=== PATIENT | female | born 1980 | race African-American/Black ===

== ENCOUNTER 2017-03-02 06:11 | Day surgery (SDC) | payer OTHER ==
[2017-02-28 12:21] LABS: BASOPHILS # (AUTO) 0.2 K/uL (0.00-0.22); BASOPHILS % (AUTO) 2.9 % (0.0-2.0); EOSINOPHILS # (AUTO) 0.2 K/uL (0-0.4); EOSINOPHILS % (AUTO) 2.2 % (0.0-4.0); HEMOGLOBIN 11.5 g/dL (12.0-16.0); LYMPHOCYTES # (AUTO) 3.3 K/uL (2.5-16.5); LYMPHOCYTES % (AUTO) 39.5 % (20.5-51.1); MEAN CORPUSCULAR HEMOGLOBIN 24 pg (27-31); MEAN CORPUSCULAR HGB CONC 32 g/dL (33-37); MEAN CORPUSCULAR VOLUME 74 fL (80-94); MONOCYTES # (AUTO) 0.4 K/uL (0.8-1.0); MONOCYTES % (AUTO) 4.8 % (1.7-9.3); NEUTROPHILS # (AUTO) 4.3 K/uL (1.8-7.7); NEUTROPHILS % (AUTO) 50.6 % (42.2-75.2); PLATELET COUNT (AUTO) 350 K/uL (140-450); RED BLOOD CELL COUNT(AUTO) 4.87 MIL/uL (4.20-5.40); RED CELL DISTRIBUTION WIDTH 19.8 % (11.6-13.7); WHITE BLOOD COUNT (AUTO) 8.4 K/uL (4.8-10.8)
[2017-02-28 12:47] LABS: ALBUMIN 3.9 g/dL (3.4-5.0); CARBON DIOXIDE 29.6 mmol/L (21-32); POTASSIUM 3.6 mmol/L (3.5-5.1); TOTAL BILIRUBIN 0.2 mg/dL (0.0-1.0)
[~2017-03-02] VITALS: Ht 142.2 cm; Wt 80.7 kg
[2017-03-02] MEDS ORDERED: SIMV5TAB1 PO (07:06)
[2017-03-02] MEDS ORDERED: CARV12.5 PO (07:06)
[2017-03-02] MEDS ORDERED: AMLO5TAB PO (07:06)
[2017-03-02] MEDS ORDERED: IBUPROFEN 800 MG TAB PO PRN (08:35)
[2017-03-02] MEDS ORDERED: ONDANSETRON 4 MG/2 ML VIAL IVP PRN ×2 (08:35→09:50)
[2017-03-02] MEDS ORDERED: ACETAMINOPHEN/CODEINE 300/30MG 1 TAB PO PRN (08:35)
[2017-03-02] MEDS ORDERED: MORPHINE SULFATE 4 MG/ML SYR IM/IVP PRN (08:35)
[2017-03-02] MEDS ORDERED: SEVOFLURANE 250 ML BTL INH ONE (09:10)
[2017-03-02] MEDS ORDERED: PROPOFOL 200 MG/20 ML VIAL IV ONE (09:10)
[2017-03-02] MEDS ORDERED: LABETALOL 100 MG/20 ML VIAL ONE (09:10)
[2017-03-02] MEDS ORDERED: LIDOCAINE 2% 100 MG/5 ML SYR IVP ONE (09:10)
[2017-03-02] MEDS ORDERED: MIDAZOLAM 2 MG/2 ML VIAL ONE (09:22)
[2017-03-02] MEDS: HYDROmorphone 1 MG/ML AMP IVP PRN ×2 (10:25→10:33)
[2017-03-02] MEDS ORDERED: HYDROmorphone PFS 2 MG/ML SYR ONE (10:36)
== END 2017-03-02 11:27 | disposition home or self-care (01) ==
LOC: MDS 06:11 → MMU 06:12 → MDS 11:27
PROVIDERS: ATTEND Obstetrics & Gynecology
DX: N92.1 Excessive and frequent menstruation with irregular cycle (principal); I10 Essential (primary) hypertension; E78.00 Pure hypercholesterolemia, unspecified; E78.5 Hyperlipidemia, unspecified; F32.9 Major depressive disorder, single episode, unspecified; Z98.890 Other specified postprocedural states; Z79.899 Other long term (current) drug therapy
CPT/HCPCS: 36415; 58120; 80053; 84702; 85025; J1170; J2001; J2250; J2704; J3490; J7120; 88305

== ENCOUNTER 2017-03-11 15:31 | Emergency (ER) | payer OTHER ==
[~2017-03-11] VITALS: Ht 142.2 cm; Wt 81.6 kg
[~2017-03-11 15:31] MED LIST: AMLO5TAB PO; CARV12.5 PO; SIMV5TAB1 PO
[2017-03-11 16:01] VITALS: BP 186/94
--- NOTE | 2017-03-11 17:00 | NUR ---
PATIENT WHEELCHAIR ASSISTED TO BED 5
--- NOTE | 2017-03-11 17:10 | NUR ---
36F BIB SELF C/O VAGINAL PAIN, STABBING, NON-RADIATING, 10/10 X 3 DAYS WITH BROWN, THIN DISCHARGE AND MILD DYSURIA; PT STATES HAD D&C ON 03/02/17 AT [facility]; PT C/O NAUSEA AND VOMITING X 2 EPISODES TODAY, BUT STATES NO DIARRHEA AT THIS TIME; ABDOMEN SOFT, NON-TENDER, ACTIVE BOWEL SOUNDS X 4 QUADRANTS; PT AA&OX4, PERRLA, BL LUNG SOUNDS CLEAR, RR EVEN/UNLABORED, SKIN IS WARM/DRY/INTACT AT THIS TIME; STEADY GAIT; PT RESTING IN BED WITH HOB ELEVATED AND IN LOWEST POSITION; POSITIONED FOR COMFORT; ER MD MADE AWARE OF STATUS. WILL CONTINUE TO MONITOR.
--- NOTE | 2017-03-11 17:42 | NUR ---
ER MD DR. ALVAREZ EVALUATING PT AT BEDSIDE.
[2017-03-11] MEDS ORDERED: NACL 0.9% 1,000 ML IV SCH (17:47)
[2017-03-11] MEDS ORDERED: ONDANSETRON 4 MG/2 ML VIAL IVP ONE (17:50)
[2017-03-11] MEDS ORDERED: KETOROLAC 30 MG/ML VIAL IVP ONE (17:50)
[2017-03-11 18:42] LABS: BASOPHILS # (AUTO) 0.4 K/uL (0.00-0.22); EOSINOPHILS # (AUTO) 0.3 K/uL (0-0.4); HEMATOCRIT 37.9 % (36-48); HEMOGLOBIN 11.7 g/dL (12.0-16.0); LYMPHOCYTES # (AUTO) 3.2 K/uL (2.5-16.5); MEAN CORPUSCULAR HEMOGLOBIN 23 pg (27-31); MEAN CORPUSCULAR HGB CONC 31 g/dL (33-37); MEAN CORPUSCULAR VOLUME 76 fL (80-94); MONOCYTES # (AUTO) 0.5 K/uL (0.8-1.0); NEUTROPHILS # (AUTO) 6.7 K/uL (1.8-7.7); PLATELET COUNT (AUTO) 313 K/uL (140-450); RED CELL DISTRIBUTION WIDTH 21.3 % (11.6-13.7); WHITE BLOOD COUNT (AUTO) 11.1 K/uL (4.8-10.8)
--- NOTE | 2017-03-11 18:50 | NUR ---
PT TAKEN TO US VIA W/C ACCOMAPANIED BY [employer] AT THIS TIME.
[2017-03-11 18:51] LABS: APPEARANCE,URINE SL CLOUDY (CLEAR); BLOOD, URINE 2+ (NEGATIVE); COLOR,URINE YELLOW (YELLOW); LEUKOCYTE ESTERASE ,URINE TRACE (NEGATIVE); NITRITE, URINE NEGATIVE (NEGATIVE); UGLUCOSE NEGATIVE (NEGATIVE)
[2017-03-11 18:57] LABS: BILIRUBIN,URINE NEGATIVE (NEGATIVE)
[2017-03-11 18:58] LABS: RBC,URINE 20-40 /HPF (0-5)
[2017-03-11 19:00] LABS: ANION GAP 14.1 (8-16); CARBON DIOXIDE 23.3 mmol/L (21-32); CREATININE 0.8 mg/dL (0.6-1.3); POTASSIUM 3.4 mmol/L (3.5-5.1); TOTAL BILIRUBIN 0.3 mg/dL (0.0-1.0)
--- NOTE | 2017-03-11 19:10 | NUR ---
Pt report given to MAGDI VILLALBA. Transfer of care at this time.
[2017-03-11] MEDS ORDERED: MORPHINE SULFATE 4 MG/ML SYR IVP ONE (19:25)
--- NOTE | 2017-03-11 20:25 | NUR ---
IV removed, catheter intact and site benign. Applied folded 4x4 gauze and tape to stop bleeding.
--- NOTE | 2017-03-11 20:28 | NUR ---
Patient discharged with v/s stable. Written and verbal after care instructions given and explained. Patient alert, oriented and verbalized understanding of instructions. Ambulatory with steady gait. All questions addressed prior to discharge. ID band removed. Patient advised to follow up with PMD. Rx of KEFLEX 500MG, COLACE 100MG, AND NORCO 5/325MG given. Patient educated on indication of medication including possible reaction and side effects. Opportunity to ask questions provided and answered.
[2017-03-11 20:29] VITALS: BP 142/87
== END 2017-03-11 20:29 | disposition home or self-care (01) ==
LOC: MED 15:31
DX: R10.2 Pelvic and perineal pain (principal); I10 Essential (primary) hypertension; E78.5 Hyperlipidemia, unspecified; Z87.442 Personal history of urinary calculi; Z79.899 Other long term (current) drug therapy
CPT/HCPCS: 36415; 76830; 80053; 81001; 81025; 83605; 85025; 87040; 87086; 96361; 96374; 96375; 99285; J1885; J2270; J2405; J7030

== ENCOUNTER 2024-02-13 19:06 | Emergency (ER) | payer OTHER ==
[~2024-02-13] VITALS: Ht 142.2 cm; Wt 44.5 kg
[~2024-02-13 19:06] MED LIST changes: -SIMV5TAB1 PO; +SIMV5TAB55 PO
[2024-02-13 19:14] VITALS: BP 172/101; PULSE 104; RESP 22; TEMP 98; O2SAT 99
[2024-02-13 19:55] VITALS: O2SAT 98
[2024-02-13] MEDS: DICYCLOMINE HCL LIQUID 10 MG/5 ML UDC PO ONE (20:19)
[2024-02-13] MEDS: ALUMINUM HYD/MAG/SIMETHICONE 30 ML UDC PO ONE (20:20)
[2024-02-13] MEDS: FAMOTIDINE 20 MG/2 ML VIAL IVP ONE (20:21)
[2024-02-13] MEDS: MORPHINE SULFATE 4 MG/ML SYR IVP ONE (20:22)
[2024-02-13 20:27] LABS: BASOPHILS % (AUTO) 0.3 % (0.0-2.0); EOSINOPHILS % (AUTO) 0.2 % (0.0-4.0); HEMATOCRIT 33.7 % (36-48); HEMOGLOBIN 10.5 g/dL (12.0-16.0); LYMPHOCYTES # (AUTO) 2.3 K/uL (2.5-16.5); LYMPHOCYTES % (AUTO) 13.3 % (20.5-51.1); MEAN CORPUSCULAR HEMOGLOBIN 23 pg (27-31); MEAN CORPUSCULAR HGB CONC 31 g/dL (33-37); MEAN CORPUSCULAR VOLUME 73.3 fL (80-94); MONOCYTES # (AUTO) 0.8 K/uL (0.8-1.0); MONOCYTES % (AUTO) 4.8 % (1.7-9.3); NEUTROPHILS # (AUTO) 13.8 K/uL (1.8-7.7); NEUTROPHILS % (AUTO) 81.4 % (42.2-75.2); PLATELET COUNT (AUTO) 517 K/uL (140-450); RED BLOOD CELL COUNT(AUTO) 4.59 MIL/uL (4.20-5.40); RED CELL DISTRIBUTION WIDTH 21.1 % (11.6-13.7); WHITE BLOOD COUNT (AUTO) 16.9 K/uL (4.8-10.8)
[2024-02-13 20:46] LABS: ANION GAP 16.3 (8-16); CALCIUM 9.9 mg/dL (8.5-10.1); CARBON DIOXIDE 18.9 mmol/L (21-32); POTASSIUM 3.2 mmol/L (3.5-5.1)
[2024-02-13 20:49] LABS: ALBUMIN 3.7 g/dL (3.4-5.0); BILIRUBIN,DIRECT 0.1 mg/dL (0.0-0.3); TOTAL BILIRUBIN 0.2 mg/dL (0.0-1.0); TOTAL PROTEIN, SERUM 7.5 g/dL (6.4-8.2)
[2024-02-13] MEDS: NACL 0.9% 1,000 ML IV ONE (21:30)
[2024-02-13 21:50] LABS: APPEARANCE,URINE CLEAR (CLEAR); BILIRUBIN,URINE NEGATIVE (NEGATIVE); BLOOD, URINE NEGATIVE (NEGATIVE); COLOR,URINE YELLOW (YELLOW); LEUKOCYTE ESTERASE ,URINE NEGATIVE (NEGATIVE); NITRITE, URINE NEGATIVE (NEGATIVE); PROTEIN,URINE TRACE (NEGATIVE); UGLUCOSE NEGATIVE (NEGATIVE); UROBILINOGEN,URINE 0.2 EU/dL (0.2 - 1)
[2024-02-13] MEDS ORDERED: ONDA-188 PO (22:51)
[2024-02-13] MEDS ORDERED: IBUP-2213 PO (22:51)
[2024-02-13] MEDS ORDERED: DOXY25TA42 PO (22:51)
[2024-02-13] MEDS ORDERED: MIRABULK PO (22:51)
[2024-02-13] MEDS ORDERED: [UNRECOGNIZED DRUG - CODE] PO (22:51)
[2024-02-13 23:19] VITALS: BP 119/68; PULSE 85; RESP 18; TEMP 97.8; O2SAT 99
== END 2024-02-13 23:19 | disposition home or self-care (01) ==
LOC: MED 19:06
DX: K52.9 Noninfective gastroenteritis and colitis, unspecified (principal); K59.00 Constipation, unspecified; I10 Essential (primary) hypertension; Z86.69 Personal history of other diseases of the nervous system and sense organs; Z90.49 Acquired absence of other specified parts of digestive tract; Z79.899 Other long term (current) drug therapy; Z79.1 Long term (current) use of non-steroidal anti-inflammatories (NSAID)
CPT/HCPCS: 36415; 74177; 80048; 80076; 81003; 81025; 83690; 85025; 96361; 96374; 96375; 99285; J2270; J3490; J7030; Q9967

== ENCOUNTER 2024-04-01 10:42 | Inpatient (IN) | payer OTHER ==
[~2024-04-01] VITALS: Ht 142.2 cm; Wt 45.4 kg
[~2024-04-01 10:42] MED LIST changes: +DOXY25TA42 PO; +IBUP-2213 PO; +MIRABULK PO; +ONDA-188 PO; +[UNRECOGNIZED DRUG - CODE] PO
[2024-04-01 10:46] VITALS: BP 123/86; PULSE 92; RESP 16; TEMP 98.1
[2024-04-01] MEDS: ONDANSETRON 4 MG/2 ML VIAL IVP ONE (11:24)
[2024-04-01] MEDS: NACL 0.9% 1,000 ML IV ONE ×2 (11:29→14:54)
[2024-04-01 12:23] LABS: BASOPHILS % (AUTO) 0.6 % (0.0-2.0); EOSINOPHILS % (AUTO) 0.3 % (0.0-4.0); HEMOGLOBIN 9.2 g/dL (12.0-16.0); LYMPHOCYTES # (AUTO) 1.1 K/uL (2.5-16.5); LYMPHOCYTES % (AUTO) 17.2 % (20.5-51.1); MEAN CORPUSCULAR HEMOGLOBIN 22 pg (27-31); MEAN CORPUSCULAR HGB CONC 31 g/dL (33-37); MEAN CORPUSCULAR VOLUME 72.2 fL (80-94); MONOCYTES # (AUTO) 0.5 K/uL (0.8-1.0); MONOCYTES % (AUTO) 8.2 % (1.7-9.3); NEUTROPHILS # (AUTO) 4.8 K/uL (1.8-7.7); NEUTROPHILS % (AUTO) 73.7 % (42.2-75.2); PLATELET COUNT (AUTO) 316 K/uL (140-450); RED BLOOD CELL COUNT(AUTO) 4.16 MIL/uL (4.20-5.40); RED CELL DISTRIBUTION WIDTH 19.3 % (11.6-13.7); WHITE BLOOD COUNT (AUTO) 6.5 K/uL (4.8-10.8)
[2024-04-01 12:43] LABS: ALBUMIN 3.4 g/dL (3.4-5.0); ANION GAP 12.4 (8-16); CALCIUM 8.7 mg/dL (8.5-10.1); CARBON DIOXIDE 22.9 mmol/L (21-32); CREATININE 0.8 mg/dL (0.6-1.3); POTASSIUM 3.3 mmol/L (3.5-5.1); TOTAL BILIRUBIN 0.2 mg/dL (0.0-1.0); TOTAL PROTEIN, SERUM 6.7 g/dL (6.4-8.2)
[2024-04-01] MEDS: MORPHINE SULFATE 4 MG/ML SYR IVP ONE (14:56)
[2024-04-01 16:26] LABS: APPEARANCE,URINE CLEAR (CLEAR); BILIRUBIN,URINE NEGATIVE (NEGATIVE); BLOOD, URINE TRACE-I (NEGATIVE); COLOR,URINE YELLOW (YELLOW); LEUKOCYTE ESTERASE ,URINE NEGATIVE (NEGATIVE); NITRITE, URINE NEGATIVE (NEGATIVE); PROTEIN,URINE TRACE (NEGATIVE); UGLUCOSE NEGATIVE (NEGATIVE)
[2024-04-01] MEDS ORDERED: ACET500T99 PO (17:52)
[2024-04-01] MEDS ORDERED: ONDA-188 SL (17:52)
[2024-04-01] MEDS ORDERED: KCL 20 MEQ IN 100 mL PREMIX 200 ML IV PRN (19:40)
[2024-04-01] MEDS ORDERED: ACETAMINOPHEN 325 MG TAB PO PRN (19:40)
[2024-04-01] MEDS ORDERED: MAG SULF 2000 MG/WATER PREMIX 50 ML IV PRN (19:40)
[2024-04-01] MEDS ORDERED: cefTRIAXone 1,000 MG VIAL ONE (19:41)
[2024-04-01] MEDS: metroNIDAZOLE 500 MG/NS PREMIX 100 ML IV ONE (20:14)
[2024-04-01] MEDS ORDERED: LEVE500T18 PO (20:39)
[2024-04-01] MEDS ORDERED: LISI20TA29 PO (20:39)
[2024-04-01] MEDS ORDERED: PANT40EC56 PO (20:39)
[2024-04-01 20:48] LABS: AMPHETAMINE, URINE NEGATIVE ng/ml (NEG <=1000); BARBITURATE, URINE NEGATIVE ng/ml (NEG <=200); BENZODIAZEPINE, URINE NEGATIVE ng/mL (NEG <=200); CANNABINOID, URINE NEGATIVE ng/mL (NEG <=50); COCAINE, URINE NEGATIVE ng/mL (NEG <=300); OPIATE, URINE POSITIVE ng/mL (NEG <=2000); PHENCYCLIDINE SCREEN,URINE NEGATIVE ng/mL (NEG <=25)
[2024-04-01 20:50] VITALS: BP 132/86; PULSE 88; RESP 15; RESP 18; TEMP 97.5; O2SAT 99
[2024-04-01] MEDS: NACL 0.9% 1,000 ML IV SCH (21:13)
[2024-04-01] MEDS: MORPHINE SULFATE 2 MG/ML SYR IVP PRN (21:14)
[2024-04-01] MEDS: POTASSIUM CHLORIDE 10 MEQ TABER PO PRN (21:24)
[2024-04-02 03:50] VITALS: BP 123/72; PULSE 104; RESP 18; TEMP 97; O2SAT 100
[2024-04-02] MEDS: metroNIDAZOLE 500 MG/NS PREMIX 100 ML IV SCH (04:24)
[2024-04-02 08:00] VITALS: PULSE 88; RESP 18; O2SAT 99
[2024-04-02 08:30] LABS: BASOPHILS % (AUTO) 0.7 % (0.0-2.0); EOSINOPHILS # (AUTO) 0.1 K/uL (0-0.4); EOSINOPHILS % (AUTO) 1.6 % (0.0-4.0); HEMATOCRIT 26.7 % (36-48); HEMOGLOBIN 8.2 g/dL (12.0-16.0); LYMPHOCYTES # (AUTO) 1.5 K/uL (2.5-16.5); LYMPHOCYTES % (AUTO) 22.2 % (20.5-51.1); MEAN CORPUSCULAR HEMOGLOBIN 22 pg (27-31); MEAN CORPUSCULAR HGB CONC 31 g/dL (33-37); MEAN CORPUSCULAR VOLUME 72.5 fL (80-94); MONOCYTES # (AUTO) 0.5 K/uL (0.8-1.0); MONOCYTES % (AUTO) 7.6 % (1.7-9.3); NEUTROPHILS # (AUTO) 4.5 K/uL (1.8-7.7); NEUTROPHILS % (AUTO) 67.9 % (42.2-75.2); PLATELET COUNT (AUTO) 284 K/uL (140-450); RED BLOOD CELL COUNT(AUTO) 3.69 MIL/uL (4.20-5.40); RED CELL DISTRIBUTION WIDTH 19.2 % (11.6-13.7); WHITE BLOOD COUNT (AUTO) 6.7 K/uL (4.8-10.8)
[2024-04-02 08:37] LABS: CALCIUM 8.6 mg/dL (8.5-10.1); CREATININE 0.7 mg/dL (0.6-1.3); MAGNESIUM 1.6 mg/dL (1.8-2.4); POTASSIUM 3.2 mmol/L (3.5-5.1); TOTAL BILIRUBIN 0.3 mg/dL (0.0-1.0); TOTAL PROTEIN, SERUM 5.8 g/dL (6.4-8.2)
[2024-04-02 09:14] LABS: CARBON DIOXIDE 18.2 mmol/L (21-32)
[2024-04-02] MEDS: lisinopriL 20 MG TAB PO SCH (11:36)
[2024-04-02] MEDS: levETIRAcetam 500 MG TAB PO SCH (11:36)
[2024-04-02 12:00] VITALS: BP 120/78; PULSE 92; RESP 18; TEMP 97.3; O2SAT 99
[2024-04-02] MEDS: HYDROcodone/APAP 5/325 MG 1 TAB TAB PO PRN (13:09)
[2024-04-02 20:00] VITALS: BP 135/76; PULSE 77; PULSE 88; RESP 18; TEMP 97.5; O2SAT 97; O2SAT 99
[2024-04-02] MEDS: MEDS-TO-BEDS MC SCH (21:45)
[2024-04-03 04:00] VITALS: BP 123/85; PULSE 88; RESP 18; TEMP 97; O2SAT 99
[2024-04-03 05:33] LABS: BASOPHILS % (AUTO) 0.7 % (0.0-2.0); EOSINOPHILS # (AUTO) 0.2 K/uL (0-0.4); EOSINOPHILS % (AUTO) 3.8 % (0.0-4.0); HEMATOCRIT 25.2 % (36-48); HEMOGLOBIN 7.9 g/dL (12.0-16.0); LYMPHOCYTES # (AUTO) 1.9 K/uL (2.5-16.5); LYMPHOCYTES % (AUTO) 31.6 % (20.5-51.1); MEAN CORPUSCULAR HEMOGLOBIN 23 pg (27-31); MEAN CORPUSCULAR HGB CONC 31 g/dL (33-37); MEAN CORPUSCULAR VOLUME 71.8 fL (80-94); MONOCYTES # (AUTO) 0.5 K/uL (0.8-1.0); MONOCYTES % (AUTO) 8.2 % (1.7-9.3); NEUTROPHILS # (AUTO) 3.3 K/uL (1.8-7.7); NEUTROPHILS % (AUTO) 55.7 % (42.2-75.2); PLATELET COUNT (AUTO) 280 K/uL (140-450); RED BLOOD CELL COUNT(AUTO) 3.51 MIL/uL (4.20-5.40); RED CELL DISTRIBUTION WIDTH 19.5 % (11.6-13.7); WHITE BLOOD COUNT (AUTO) 5.9 K/uL (4.8-10.8)
[2024-04-03] MEDS: MAGNESIUM OXIDE 400 MG TAB PO PRN (05:51)
[2024-04-03 05:58] LABS: ALBUMIN 2.8 g/dL (3.4-5.0); CALCIUM 8.9 mg/dL (8.5-10.1); CARBON DIOXIDE 22.4 mmol/L (21-32); CREATININE 0.7 mg/dL (0.6-1.3); MAGNESIUM 1.7 mg/dL (1.8-2.4); POTASSIUM 3.4 mmol/L (3.5-5.1); TOTAL BILIRUBIN 0.2 mg/dL (0.0-1.0); TOTAL PROTEIN, SERUM 5.7 g/dL (6.4-8.2)
[2024-04-03 08:00] VITALS: PULSE 91; RESP 18; O2SAT 100
[2024-04-03] MEDS: PANTOPRAZOLE 40 MG TABEC PO SCH (08:33)
[2024-04-03 12:00] VITALS: BP 123/83; PULSE 91; RESP 18; TEMP 97.9; O2SAT 100
[2024-04-03] MEDS: SENNA 8.6 MG TAB PO SCH (17:40)
[2024-04-03 20:00] VITALS: BP 132/91; PULSE 90; RESP 18; TEMP 97.4; O2SAT 100
[2024-04-03] MEDS: POLYETHYLENE GLYCOL 17 GM/PKT PO SCH (20:39)
[2024-04-03] MEDS ORDERED: POLYETHYLENE GLYCOL 17 GM/PKT PO SCH (21:00)
[2024-04-03] MEDS: SODIUM FERRIC GLUCONATE 125 MG in NACL 0.9% 100 ML IV SCH (21:01)
[2024-04-04 04:00] VITALS: BP 137/92; PULSE 87; RESP 18; TEMP 97.3; O2SAT 100
[2024-04-04 05:56] LABS: BASOPHILS # (AUTO) 0.1 K/uL (0.00-0.22); BASOPHILS % (AUTO) 0.9 % (0.0-2.0); EOSINOPHILS # (AUTO) 0.2 K/uL (0-0.4); HEMATOCRIT 25.4 % (36-48); HEMOGLOBIN 8.1 g/dL (12.0-16.0); LYMPHOCYTES # (AUTO) 1.8 K/uL (2.5-16.5); LYMPHOCYTES % (AUTO) 29.1 % (20.5-51.1); MEAN CORPUSCULAR HEMOGLOBIN 23 pg (27-31); MEAN CORPUSCULAR HGB CONC 32 g/dL (33-37); MEAN CORPUSCULAR VOLUME 71.1 fL (80-94); MONOCYTES # (AUTO) 0.5 K/uL (0.8-1.0); MONOCYTES % (AUTO) 7.7 % (1.7-9.3); NEUTROPHILS # (AUTO) 3.6 K/uL (1.8-7.7); NEUTROPHILS % (AUTO) 58.3 % (42.2-75.2); PLATELET COUNT (AUTO) 300 K/uL (140-450); RED BLOOD CELL COUNT(AUTO) 3.57 MIL/uL (4.20-5.40); RED CELL DISTRIBUTION WIDTH 19.2 % (11.6-13.7); WHITE BLOOD COUNT (AUTO) 6.1 K/uL (4.8-10.8)
[2024-04-04 07:02] LABS: ALBUMIN 2.8 g/dL (3.4-5.0); ANION GAP 11.9 (8-16); CALCIUM 8.8 mg/dL (8.5-10.1); CARBON DIOXIDE 22.7 mmol/L (21-32); CREATININE 0.7 mg/dL (0.6-1.3); MAGNESIUM 1.6 mg/dL (1.8-2.4); POTASSIUM 3.6 mmol/L (3.5-5.1); TOTAL BILIRUBIN 0.2 mg/dL (0.0-1.0); TOTAL PROTEIN, SERUM 5.9 g/dL (6.4-8.2)
[2024-04-04 08:00] VITALS: BP 122/89; PULSE 84; PULSE 92; RESP 18; RESP 19; TEMP 97.7; O2SAT 100; O2SAT 99
[2024-04-04 08:09] LABS: CARCINOEMBRYONIC AG 2.9 ng/mL (0.0-4.7)
[2024-04-04] MEDS ORDERED: POTASSIUM CHLORIDE 40 MEQ, LIDOCAINE 1% 25 MG in NACL 0.9% 250 ML IV ONE (08:50)
[2024-04-04 10:28] LABS: INR 1.14 (0.8-1.2); PARTIAL THROMBOPLASTIN TIME 26.5 secs (22-35.6); PROTHROMBIN TIME 11.9 secs (10.8-13.4)
[2024-04-04] MEDS: POLYETHYLENE GLYCOL 17 GM/PKT PO SCH (13:00)
[2024-04-04 16:00] VITALS: BP 135/87; PULSE 75; RESP 18; TEMP 97.5; O2SAT 100
[2024-04-04] MEDS: SUPREP BOWEL PREP KIT 354 ML SOLN.RECON PO SCH (16:55)
[2024-04-04] MEDS: ONDANSETRON 4 MG/2 ML VIAL IVP PRN (17:37)
[2024-04-04 20:00] VITALS: BP 129/86; PULSE 75; RESP 18; TEMP 97.3; O2SAT 100
[2024-04-05] MEDS: cefTRIAXone 1,000 MG VIAL ONE (00:14)
[2024-04-05 04:15] VITALS: BP 108/65; PULSE 80; RESP 18; TEMP 97.7; O2SAT 99
[2024-04-05 05:45] LABS: BASOPHILS # (AUTO) 0.1 K/uL (0.00-0.22); BASOPHILS % (AUTO) 1.2 % (0.0-2.0); EOSINOPHILS # (AUTO) 0.3 K/uL (0-0.4); EOSINOPHILS % (AUTO) 4.5 % (0.0-4.0); HEMATOCRIT 26.8 % (36-48); HEMOGLOBIN 8.4 g/dL (12.0-16.0); LYMPHOCYTES # (AUTO) 2.1 K/uL (2.5-16.5); LYMPHOCYTES % (AUTO) 31.8 % (20.5-51.1); MEAN CORPUSCULAR HEMOGLOBIN 23 pg (27-31); MEAN CORPUSCULAR HGB CONC 31 g/dL (33-37); MONOCYTES # (AUTO) 0.5 K/uL (0.8-1.0); MONOCYTES % (AUTO) 7.9 % (1.7-9.3); NEUTROPHILS # (AUTO) 3.5 K/uL (1.8-7.7); NEUTROPHILS % (AUTO) 54.6 % (42.2-75.2); PLATELET COUNT (AUTO) 326 K/uL (140-450); RED BLOOD CELL COUNT(AUTO) 3.72 MIL/uL (4.20-5.40); RED CELL DISTRIBUTION WIDTH 19.6 % (11.6-13.7); WHITE BLOOD COUNT (AUTO) 6.4 K/uL (4.8-10.8)
[2024-04-05 06:01] LABS: ALBUMIN 2.9 g/dL (3.4-5.0); ANION GAP 12.6 (8-16); CALCIUM 8.9 mg/dL (8.5-10.1); CARBON DIOXIDE 22.5 mmol/L (21-32); CREATININE 0.7 mg/dL (0.6-1.3); MAGNESIUM 1.7 mg/dL (1.8-2.4); POTASSIUM 3.1 mmol/L (3.5-5.1); TOTAL BILIRUBIN 0.1 mg/dL (0.0-1.0); TOTAL PROTEIN, SERUM 5.8 g/dL (6.4-8.2)
[2024-04-05] MEDS: POTASSIUM CHLORIDE 40 MEQ, LIDOCAINE 1% 25 MG in NACL 0.9% 250 ML IV ONE (10:53)
[2024-04-05] MEDS ORDERED: AMOX1TAB7 PO (12:26)
[2024-04-05] MEDS ORDERED: DOCU-299 PO (12:26)
[2024-04-05 13:27] VITALS: BP 108/65; PULSE 80; RESP 18; TEMP 97.7
== END 2024-04-05 13:50 | disposition home or self-care (01) | DRG 241 ==
LOC: MED 10:42 → MMU 19:40 → MTU 20:15
PROVIDERS: ADMIT Student in an Organized Health Care Education/Training Program; ATTEND Student in an Organized Health Care Education/Training Program
DX: K29.00 Acute gastritis without bleeding (principal); R64 Cachexia; D62 Acute posthemorrhagic anemia; D72.829 Elevated white blood cell count, unspecified; K56.41 Fecal impaction; K21.9 Gastro-esophageal reflux disease without esophagitis; I10 Essential (primary) hypertension; Z79.899 Other long term (current) drug therapy; Z68.22 Body mass index [BMI] 22.0-22.9, adult
CPT/HCPCS: 36415; 74018; 76856; 80053; 80305; 81003; 82378; 83690; 83735; 85025; 85610; 85730; 86301; 86304; 87040; 87081; 87086; 96361; 96365; 96375; 99285; J0696; J2001; J2270; J2405; J2916; J3480; J3490; J7030; J7060; Q0092; Q9967